=== PATIENT | male | born 1990 | race Caucasian/White ===

== ENCOUNTER 2018-12-06 09:13 | Emergency (ER) | payer MEDICAID ==
[~2018-12-06] VITALS: Ht 172.7 cm; Wt 93.4 kg
[2018-12-06 09:21] VITALS: Ht 172.7 cm; Wt 93.4 kg
[2018-12-06 11:56] VITALS: BP 132/81
== END 2018-12-06 10:35 | disposition home or self-care (01) ==
LOC: ED 09:13
DX: M79.10 Myalgia, unspecified site (principal); H92.09 Otalgia, unspecified ear

== ENCOUNTER 2020-03-12 09:28 | Emergency (ER) | payer OTHER ==
[~2020-03-12] VITALS: Ht 172.7 cm; Wt 95.7 kg
[2020-03-12 09:36] VITALS: Ht 172.7 cm; Wt 95.7 kg
[2020-03-12 10:52] VITALS: BP 148/80
== END 2020-03-12 10:52 | disposition home or self-care (01) ==
LOC: ED 09:28
DX: H61.22 Impacted cerumen, left ear (principal); K64.9 Unspecified hemorrhoids